=== PATIENT | female | born 1995 | race African-American/Black ===

== ENCOUNTER 2020-11-10 00:20 | Emergency (ER) | payer OTHER ==
[~2020-11-10] VITALS: Ht 172.7 cm; Wt 54.4 kg
[2020-11-10 00:55] VITALS: BP_SYST 136
--- NOTE | 2020-11-10 01:30 | NUR ---
Per underwriting clerk, pt LWBS.
== END 2020-11-10 01:30 | disposition left against medical advice (07) ==
LOC: SED 00:20
DX: R07.0 Pain in throat (principal); Z53.21 Procedure and treatment not carried out due to patient leaving prior to being seen by health care provider